=== PATIENT | male | born 1935 ===

== ENCOUNTER 2022-07-11 10:56 | Observation (INO) | payer MEDICARE ==
--- NOTE | 2022-07-11 11:20 | Emergency Department Report ---
ED Neuro Deficit HPI - General Chief Complaint: Neuro Symptoms/Deficit Stated Complaint: STROKE Time Seen by Provider: 07/11/22 11:15 Source: family, EMS Mode of arrival: Stretcher Limitations: Physical Limitation - History of Present Illness Initial Comments: As per daughter 87-year-old male with a past medical history of a CVA affecting left eye vision many years ago and CVA 1 month ago treated at [facility] presents to the hospital with complaints of strokelike symptoms. Daughter states patient ambulated normally to the bathroom. She was assisting patient and around 10 AM he began to have difficulty standing and became less responsive. She reports garbled speech and left-sided weakness. Patient had a CVA 1 month ago which he presented with ab normal speech and was noted to have some left-sided weakness. Since then patient has deteriorated from using a cane to a walker and he has undergone several rounds of physical and occupational therapy since discharge from the hospital. Patient was placed on Lipitor and Plavix and has been compliant. He currently is with his daughter since recent stroke. Patient denies any pain. EMS reports left-sided weakness upon their arrival but symptoms are improving - Related Data Allergies/Adverse Reactions: Allergies Allergy/AdvReac Type Severity Reaction Status Date / Time No Known Allergies Allergy Unverified 07/11/22 11:02 ED Review of Systems ROS: Stated complaint: STROKE Other details as noted in HPI Comment: All other systems reviewed and negative ED Neuro Physical Exam - General Limitations: Physical Limitation Suspected Stroke: Yes - NIHSS Assessment Interval: Baseline 1a. Level of Consciousness: alert/keenly responsive 1b. LOC Questions: answers both correctly 1c. LOC Commands: performs tasks correctly 2. Best Gaze: normal 3. Visual: no visual loss 4. Facial Palsy: minor paralysis 5b. Motor Arm Right: no drift 5a. Motor Arm Left: no drift 6a. Motor Leg Left: drift 6b. Motor Leg Right: no drift 7. Limb Ataxia: absent 8. Sensory: normal 9. Best Language: no aphasia 10. Dysarthria: mild/moderate dysarthria 11. Extinction/Inattention: no abnormality Total Score: 3 Stroke Severity: Minor Stroke - Other Other exam information: General: No acute distress Head: Atraumatic Eyes: normal appearance ENT: Moist mucous membranes Neck: Normal appearance, no midline tenderness Chest: Clear to auscultation bilaterally CV: Regular rate and rhythm Abdomen: Soft, normal bowel sounds, nontender, nondistended, no rebound or guarding Back: Normal inspection Extremity: Normal inspection, full range of motion Neuro: Alert O x 3, no facial asymmetry, speech clear, no gross motor sensory deficit Psych: Appropriate behavior Skin: No rash ED Course Vital Signs 07/11/22 07/11/22 07/11/22 10:56 11:45 11:48 Temperature 98.0 F 97.8 F Pulse Rate 42 L 73 67 Respiratory 16 13 29 H Rate Blood Pressure Blood Pressure 155/67 151/70 [Right] O2 Sat by Pulse 98 98 Oximetry 07/11/22 07/11/22 07/11/22 11:50 12:01 12:15 Temperature Pulse Rate 61 58 L Respiratory 26 H 27 H 26 H Rate Blood Pressure 151/70 164/80 Blood Pressure [Right] O2 Sat by Pulse 98 98 96 Oximetry 07/11/22 07/11/22 07/11/22 12:31 12:45 13:01 Temperature Pulse Rate 66 59 L 58 L Respiratory 30 H 25 H 24 Rate Blood Pressure 164/80 159/71 159/71 Blood Pressure [Right] O2 Sat by Pulse 99 99 99 Oximetry 07/11/22 13:15 Temperature Pulse Rate 58 L Respiratory 26 H Rate Blood Pressure 162/75 Blood Pressure [Right] O2 Sat by Pulse 100 Oximetry - Consultations Consultation #1: 07/11/22 11:38 Case d/w Dr Em neurologist. Pt's daughter at the bedside - Lab Data Result diagrams: 07/11/22 12:35 07/11/22 12:35 Lab Results 07/11/22 07/11/22 07/11/22 Range/Units 12:35 12:35 12:35 WBC 9.5 (4.5-11.0) K/mm3 RBC 2.95 L (3.65-5.03) M/mm3 Hgb 8.0 L (11.8-15.2) gm/dl Hct 24.6 L (35.5-45.6) % MCV 83 L (84-94) fl MCH 27 L (28-32) pg MCHC 32 (32-34) % RDW 15.6 H (13.2-15.2) % Plt Count 300 (140-440) K/mm3 Lymph % (Auto) 7.5 L (13.4-35.0) % [place] % (Auto) 6.7 (0.0-7.3) % Eos % (Auto) 0.4 (0.0-4.3) % Baso % (Auto) 0.1 (0.0-1.8) % Lymph # (Auto) 0.7 L (1.2-5.4) K/mm3 [place] # (Auto) 0.6 (0.0-0.8) K/mm3 Eos # (Auto) 0.0 (0.0-0.4) K/mm3 Baso # (Auto) 0.0 (0.0-0.1) K/mm3 Seg Neutrophils % 85.3 H (40.0-70.0) % Seg Neutrophils # 8.1 H (1.8-7.7) K/mm3 PT 15.1 H (12.2-14.9) Sec. INR 1.07 (0.87-1.13) APTT 30.1 (24.2-36.6) Sec. Thrombin Time 18.5 (15.1-19.6) Sec. Sodium 142 (137-145) mmol/L Potassium 4.2 (3.6-5.0) mmol/L Chloride 108.4 H (98-107) mmol/L Carbon Dioxide 25 (22-30) mmol/L Anion Gap 13 mmol/L BUN 19 (9-20) mg/dL Creatinine 1.0 (0.8-1.3) mg/dL Estimated GFR > 60 ml/min BUN/Creatinine Ratio 19 % Glucose 94 (75-100) mg/dL Calcium 8.3 L (8.4-10.2) mg/dL - EKG Data -: EKG Interpreted by Ut EKG shows normal: sinus rhythm, ST-T waves (No STEMI) - Radiology Data Radiology results: report reviewed CT HEAD WITHOUT CONTRAST INDICATION / CLINICAL INFORMATION: Left-sided weakness, dysarthria with EMS. TECHNIQUE: All CT scans at this location are performed using CT dose reduction for ALARA by means of automated exposure control. COMPARISON: None available. FINDINGS: HEMORRHAGE: No evidence of intracranial hemorrhage or extra-axial fluid collection. EXTRA-AXIAL SPACES: Cortical sulci and sylvian fissures are enlarged reflecting a degree of parenchymal volume loss which is within normal limits for the patient's age of 87 years. Basilar cisterns have an unremarkable appearance. VENTRICULAR SYSTEM: The third and lateral ventricles are enlarged reflecting presence of age related parenchymal volume loss. CEREBRAL PARENCHYMA: Periventricular and deep white matter lucency is observed. This is probably secondary to microvascular ischemic change. Well-circumscribed foci of decreased brain parenchymal attenuation are identified in the gangliocapsular regions bilaterally. In addition well- circumscribed lucencies are present in the right and left thalami. A similar finding is present in the mid jacob. These findings likely reflect simple remote small deep infarctions. Additionally noted is encephalomalacia along the medial aspect of the right occipital lobe secondary to remote right posterior cerebral artery infarction. If acute infarction is of clinical concern consider MRI brain with diffusion-weighted imaging for further evaluation. MIDLINE SHIFT OR HERNIATION: There is no mass effect. CEREBELLUM / BRAINSTEM: Brainstem has an unremarkable appearance. Age related cerebellar atrophy is noted. MIDLINE STRUCTURES:Pituitary gland has an unremarkable appearance. No abnormalities are seen in the pineal region. INTRACRANIAL VESSELS:Calcified atherosclerotic plaque is present along the course of the cavernous segments of both internal carotid arteries. Similar findings are seen at the dis jesús vertebral arteries. CRANIOCERVICAL JUNCTION:No significant abnormality. ORBITS: visualized portions of the orbits have an unremarkable appearance. SOFT TISSUES of HEAD: No significant abnormality. CALVARIUM: Evaluation of bone windows reveals no abnormalities. PARANASAL SINUSES / MASTOID AIR CELLS: Paranasal sinuses are free from inflammatory mucosal disease. Mastoid air cells are normally pneumatized. IMPRESSION: 1. 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 2. Multifocal bilateral thalamic and basal ganglia small deep infarctions. These are likely remote. 3. If acute infarction is of clinical concern consider MRI brain with diffusion weighted imaging for further evaluation. CODE STROKE: Time of Communication (HEAD OF BIOLOGY/CDT): 1035 Central standard time Licensed Practitioner Receiving Report: Dr. Abbott of the [facility] emergency department. CTA neck without and with intravenous contrast material CLINICAL HISTORY: Left-sided weakness, dysarthria TECHNIQUE: Following acquisition of a timing bolus 0.625 mm thick contiguous axial scans were obtained from aortic arch to the skull base during rapid bolus intravenous contrast infusion. In addition to evaluation of axial source images multiplanar reconstructions were produced and reviewed for this report. 3 plane MIP reconstructions were produced and reviewed. Contrast dose report: Omnipaque 350: 100 ml, administered intravenously All CT examinations performed at this facility utilize modulated dose re duction, iterative reconstruction or weight-based dosing, as appropriate, to obtain a radiation dos e which is as low as can reasonably be achieved. FINDINGS: Thoracic aorta:No abnormalities are identified along the course of the thoracic aorta..The origins of the great vessels have an unremarkable appearance. Brachiocephalic artery, left common carotid artery origin and left subclavian artery all have an unremarkable appearance. Right carotid artery: Combination of calcified and soft plaque is present at the right carotid bifurcation extending into the proximal R ICA. Maximum degree of stenosis is on the order of less than 25%. Right common carotid artery and mid and distal cervical segments of the right internal carotid artery have an unremarkable appearance. Left carotid artery: A combination of calcified and soft plaque is observed at the left carotid bulb extending into the proximal LICA. There is no associated stenosis. Right common carotid artery and mid and distal segments of the LICA have an unremarkable appearance. Posterior circulation: Mild dominance of the left vertebral artery is noted. Calcified atherosclerotic plaque is seen at the origin of both vertebral arteries with no associated stenosis. The V1 and V2 segments of the vertebral arteries have a normal appearance. The degree of stenosis, if any, is determined utilizing NASCET like criteria. In this case there is no indication of hemodynamically significant stenosis at the carotid bifurcations or elsewhere. Evaluation of the nonvascular soft tissue structures reveal no abnormality. There is no indication of cervical lymphadenopathy. No abnormalities are seen along the course of the airway. Visualized portions of the parotid glands and the submandibular salivary glands have a normal appearance. Thyroid gland has a normal appearance. A poorly marginated 14 x 13 x 10 mm groundglass lesion is present in the right upper lobe. Recommend baseline chest CT for complete evaluation of the lungs. Evaluation of the cervical spine revealed no significant abnormalities. IMPRESSION: 1. No indication of hemodynamically significant stenosis at the carotid bifurcations or elsewhere. 2. Suggest baseline chest CT at this time. 3. Single incidental pulmonary nodule(s) in the right upper lobe measuring 10 x 14 x 13 mm with subsolid (ground glass) characteristics. Recommendation according to Fleischner Society 2017 Guidelines: CT at 6-12 months to confirm persistence, then CT every 2 years until 5 years. CTA head with intravenous contrast CLINICAL HISTORY: Left-sided weakness, dysarthria TECHNIQUE: 0.625 mm thick contiguous axial scans were obtained from the skull base to the skull vertex during rapid bolus administration of intravenous contrast material. Multiplanar reconstructions were produced in the coronal and sagittal planes. In addition 3 plane MIP instructions were produced and reviewed for this report. The axial source images and reconstructed images were reviewed for this report. CONTRAST DOSE REPORT: Omnipaque 350: 100 ml administered intravenously. All CT scans at this location are performed using CT dose reduction for ALARA by means of automated exposure control. FINDINGS: Internal carotid arteries: Calcified atherosclerotic plaque is seen along the course of the cavernous segments of both internal carotid arteries extending up into the communicating segments bilaterally. There is no associated hemodynamically significant stenosis. Middle cerebral arteries:Normal and symmetrical M1 segments of the middle cerebral arteries are demonstrated. No abnormalities are seen on evaluation of the insular or opercular branches. Anterior cerebral arteries:Bilaterally symmetrical A1 segments are demonstrated. No abnormalities are seen along the course of the A2 segments or their visualized pericallosal branches. A small anterior communicating artery is identified. Vertebral arteries:Bilaterally symmetrical vertebral arteries are demonstrated. Both vertebral arteries contribute to the basilar artery origin. Basilar artery:Basilar artery has an unremarkable appearance. Posterior cerebral arteries:Bilaterally symmetrical posterior cerebral arteries are identified. A left-sided posterior communicating artery is identified. [place]:Not intact. see above. Dural sinuses: Dural venous sinuses are well demonstrated on this exam. There is no evidence of dural sinus thrombosis. IMPRESSION: 1. No indication of hemodynamically significant intracranial stenosis or large vessel occlusion. - Medical Decision Making 87-year-old male with sudden onset of strokelike symptoms at approximately 10 AM. It does appear the patient has some residual deficits status post recent CVA with increased debility requiring walker use. Patient recently completed occupational physical therapy. Symptoms worsen suddenly at 10 AM as witnessed by his daughter at the bedside. Patient not a tPA candidate secondary to recent stroke [address] head, CT angio head and neck are reviewed. Neurologist consult appreciated. Please refer to note for further work-up recommendations - Thrombolytic Inclusion/Exclusion Thrombolytic Contraindications: Stroke in Past 3 Months Critical Care Time: Yes Critical care time in (mins) excluding proc time.: 35 Critical care attestation.: If time is entered above; I have spent that time in minutes in the direct care of this critically ill patient, excluding procedure time. Critical Care Time: 35 Minutes of critical care time excluding procedures were used in the care of the patient. I came immediately to the bedside upon patient's arrival. I obtained history from EMS at the bedside. I discussed treatment plan with the nursing team members. I reviewed electronic record. I spoke with family to obtain medical history. Patient required multiple interventions and reassessments. Spoke with hospitalist and consultants for collaborative care ED Disposition Clinical Impression: Stroke syndrome, Anemia, History of CVA (cerebrovascular accident) Disposition: ADMITTED INPATIENT Is pt being admited?: Yes Does the pt Need Aspirin: Yes Condition: Stable Time of Disposition: 14:08 (Dr Eduardo/hospitalist)
--- NOTE | 2022-07-11 11:41 | Cat Scan Report ---
CT HEAD WITHOUT CONTRAST INDICATION / CLINICAL INFORMATION: Left-sided weakness, dysarthria with EMS. TECHNIQUE: All CT scans at this location are performed using CT dose reduction for ALARA by means of automated e xposure control. COMPARISON: None available. FINDINGS: HEMORRHAGE: No evidence of intracranial hemorrhage or extra-axial fluid collection. EXTRA-AXIAL SPACES: Cortical sulci and sylvian fissures are enlarged reflecting a degree of parenchym al volume loss which is within normal limits for the patient's age of 87 years. Basilar cisterns have an unremarkable appearance. VENTRICULAR SYSTEM: The third and lateral ventricles are enlarged reflecting presence of age related parenchymal volume loss. CEREBRAL PARENCHYMA: Periventricular and deep white matter lucency is observed. This is probably seco ndary to microvascular ischemic change. Well-circumscribed foci of decreased brain parenchymal attenu ation are identified in the gangliocapsular regions bilaterally. In addition well-circumscribed lucen cies are present in the right and left thalami. A similar finding is present in the mid jacob. These f indings likely reflect simple remote small deep infarctions. Additionally noted is encephalomalacia a long the medial aspect of the right occipital lobe secondary to remote right posterior cerebral arter y infarction. If acute infarction is of clinical concern consider MRI brain with diffusion-weighted i maging for further evaluation. MIDLINE SHIFT OR HERNIATION: There is no mass effect. CEREBELLUM / BRAINSTEM: Brainstem has an unremarkable appearance. Age related cerebellar atrophy is n oted. MIDLINE STRUCTURES:Pituitary gland has an unremarkable appearance. No abnormalities are seen in the p ineal region. INTRACRANIAL VESSELS:Calcified atherosclerotic plaque is present along the course of the cavernous se gments of both internal carotid arteries. Similar findings are seen at the distal vertebral arteries. CRANIOCERVICAL JUNCTION:No significant abnormality. ORBITS: visualized portions of the orbits have an unremarkable appearance. SOFT TISSUES of HEAD: No significant abnormality. CALVARIUM: Evaluation of bone windows reveals no abnormalities. PARANASAL SINUSES / MASTOID AIR CELLS: Paranasal sinuses are free from inflammatory mucosal disease. Mastoid air cells are normally pneumatized. IMPRESSION: 1. Remote right posterior cerebral artery infarction involving the medial aspect of the right occipit al lobe. 2. Multifocal bilateral thalamic and basal ganglia small deep infarctions. These are likely remote. 3. If acute infarction is of clinical concern consider MRI brain with diffusion weighted imaging for further evaluation. CODE STROKE: Time of Communication (UNIT CLERK/CDT): 1035 Central standard time Licensed Practitioner Receiving Report: Dr. Abbott of the [facility] emergency de partment. Signer Name: Ej Pineda MD Signed: 07/11/2022 11:37 AM Workstation Name: [id number]
--- NOTE | 2022-07-11 12:03 | Cat Scan Report ---
CTA neck without and with intravenous contrast material CLINICAL HISTORY: Left-sided weakness, dysarthria TECHNIQUE: Following acquisition of a timing bolus 0.625 mm thick contiguous axial scans were obtained from aort ic arch to the skull base during rapid bolus intravenous contrast infusion. In addition to evaluation of axial source images multiplanar reconstructions were produced and reviewed for this report. 3 esau ne MIP reconstructions were produced and reviewed. Contrast dose report: Omnipaque 350: 100 ml, administered intravenously All CT examinations performed at this facility utilize modulated dose reduction, iterative reconstruc tion or weight-based dosing, as appropriate, to obtain a radiation dose which is as low as can reason ably be achieved. FINDINGS: Thoracic aorta:No abnormalities are identified along the course of the thoracic aorta..The origins of the great vessels have an unremarkable appearance. Brachiocephalic artery, left common carotid arter y origin and left subclavian artery all have an unremarkable appearance. Right carotid artery: Combination of calcified and soft plaque is present at the right carotid bifurc ation extending into the proximal R ICA. Maximum degree of stenosis is on the order of less than 25%. Right common carotid artery and mid and distal cervical segments of the right internal carotid arter y have an unremarkable appearance. Left carotid artery: A combination of calcified and soft plaque is observed at the left carotid bulb extending into the proximal LICA. There is no associated stenosis. Right common carotid artery and mi d and distal segments of the LICA have an unremarkable appearance. Posterior circulation: Mild dominance of the left vertebral artery is noted. Calcified atheroscleroti c plaque is seen at the origin of both vertebral arteries with no associated stenosis. The V1 and V2 segments of the vertebral arteries have a normal appearance. The degree of stenosis, if any, is determined utilizing NASCET like criteria. In this case there is no indication of hemodynamically significant stenosis at the carotid bifurcations or elsewhere. Evaluation of the nonvascular soft tissue structures reveal no abnormality. There is no indication of cervical lymphadenopathy. No abnormalities are seen along the course of the airway. Visualized porti ons of the parotid glands and the submandibular salivary glands have a normal appearance. Thyroid gla nd has a normal appearance. A poorly marginated 14 x 13 x 10 mm groundglass lesion is present in the right upper lobe. Recommend baseline chest CT for complete evaluation of the lungs. Evaluation of the cervical spine revealed no significant abnormalities. IMPRESSION: 1. No indication of hemodynamically significant stenosis at the carotid bifurcations or elsewhere. 2. Suggest baseline chest CT at this time. 3. Single incidental pulmonary nodule(s) in the right upper lobe measuring 10 x 14 x 13 mm with subso lid (ground glass) characteristics. Recommendation according to Fleischner Society 2017 Guidelines: C T at 6-12 months to confirm persistence, then CT every 2 years until 5 years. CTA head with intravenous contrast CLINICAL HISTORY: Left-sided weakness, dysarthria TECHNIQUE: 0.625 mm thick contiguous axial scans were obtained from the skull base to the skull vertex during r apid bolus administration of intravenous contrast material. Multiplanar reconstructions were produced in the coronal and sagittal planes. In addition 3 plane MIP instructions were produced and reviewed for this report. The axial source images and reconstructed images were reviewed for this report. CONTRAST DOSE REPORT: Omnipaque 350: 100 ml administered intravenously. All CT scans at this location are performed using CT dose reduction for ALARA by means of automated e xposure control. FINDINGS: Internal carotid arteries: Calcified atherosclerotic plaque is seen along the course of the cavernous segments of both internal carotid arteries extending up into the communicating segments bilaterally. There is no associated hemodynamically significant stenosis. Middle cerebral arteries:Normal and symmetrical M1 segments of the middle cerebral arteries are demon strated. No abnormalities are seen on evaluation of the insular or opercular branches. Anterior cerebral arteries:Bilaterally symmetrical A1 segments are demonstrated. No abnormalities are seen along the course of the A2 segments or their visualized pericallosal branches. A small anterior communicating artery is identified. Vertebral arteries:Bilaterally symmetrical vertebral arteries are demonstrated. Both vertebral arteri es contribute to the basilar artery origin. Basilar artery:Basilar artery has an unremarkable appearance. Posterior cerebral arteries:Bilaterally symmetrical posterior cerebral arteries are identified. A le ft-sided posterior communicating artery is identified. [place]:Not intact. see above. Dural sinuses: Dural venous sinuses are well demonstrated on this exam. There is no evidence of dural sinus thrombosis. IMPRESSION: 1. No indication of hemodynamically significant intracranial stenosis or large vessel occlusion. Signer Name: Ej Pineda MD Signed: 07/11/2022 11:59 AM Workstation Name: [id number]
--- NOTE | 2022-07-11 12:29 | Consultation ---
History of Present Illness History of present illness: [facility] Consult Note # Demographics Consult Type: Acute Stroke Level 1 (0-4.5 hrs) Patient Location: Emergency Room First Name: Jimmie Last Name: Tony Date of : 1935 Age: 87 Gender: Male Facility: [facility] Time of Initial Page (): 07/11/2022, 10:58 Time of Return Call ( Time): 07/11/2022, 10:58 # HPI Chief Complaint: altered mental state weakness (focal) History: 87M with recent stroke and distant stroke presents with left-sided weakness. Found by daughter on the toilet. EMS called; noted to have slurred speech and left sided weakness. Had stroke 1 month ago. Fingerstick 91. LKWT 1000. Daughter took him to the bathroom to get him cleaned up, stopped moving left side normally and was not following commands. On Plavix and Lipitor. # Scores Time of exam and NIHSS (): 07/11/2022, 10:58 Level of Consciousness 1a: [0] = Alert; keenly responsive LOC Questions 1b: [0] = Answers both questions correctly LOC Commands 1c: [0] = Performs both tasks correctly Best Gaze 2: [0] = Normal Visual 3: [0] = No visual loss Facial Palsy 4: [2] = Partial paralysis Motor Arm Left 5a: [0] = No drift Motor Arm Right 5b: [0] = No drift Motor Leg Left 6a: [1] = Drift Motor Leg Right 6b: [0] = No drift Limb Ataxia 7: [0] = Absent Sensory 8: [0] = Normal Best Language 9: [0] = No aphasia Dysarthria 10: [1] = [id number] dysarthria Extinction and Inattention 11: [1] = Visual, tactile, auditory, spatial, or personal inattention NIHSS Total: 5 # Data Time Head CT personally read by me ( Time): 07/11/2022, 11:[address]: no bleed preliminarily reviewed by me, please refer to radiology read for official reading chronic R occipital stroke CTA Head: preliminarily reviewed by me, please refer to radiology read for official reading right P1 occlusion CTA Neck: patent vessels preliminarily reviewed by me, please refer to radiology read for official reading # Assessment Impression: Ischemic Stroke (Acute) # Plan Thrombolytic/Intervention: NOT IV Thrombolysis or IA Intervention candidate Thrombolytic Exclusion (< 3 hour window): stroke within 3 months Intraarterial Exclusion: non-disabling minor new symptoms Target Blood Pressure: SBP < 220 DBP < 105 Labs: hemoglobin A1c lipid panel Imaging: (urgency: routine): MRI Brain without contrast Diagnostic Test: echo without bubble study Therapy/Evaluation: PT/OT evaluation Medication: ASA 325 Atorvastatin 80 DVT Prophylaxis: SCD chemical DVT prophylaxis Other: LDL < 70 If patient has any neurological deterioration please call me back immediately permissive hypertension telemetry monitoring I have discussed my recommendations with the referring provider Disposition: admit # Logistics Telemedicine: Interactive 2 way audio and visual telecommunication technology was utilized during this visit Electronically signed at 07/11/2022 12:29 (Eastern Time) by Manav Epps MD Medications and Allergies Allergies Allergy/AdvReac Type Severity Reaction Status Date / Time No Known Allergies Allergy Unverified 07/11/22 11:02 Physical Examination - Vital Signs Vital Signs: Vital Signs Temp Pulse Resp BP Pulse Ox 98.0 F 42 L 16 155/67 98 07/11/22 10:56 07/11/22 10:56 07/11/22 10:56 07/11/22 10:56 07/11/22 10:56
[2022-07-11 12:50] LABS: Basophils % (Auto) 0.1 % (0.0-1.8); Eosinophils % (Auto) 0.4 % (0.0-4.3); Hematocrit 24.6 % (35.5-45.6); Lymphocytes # (Auto) 0.7 K/mm3 (1.2-5.4); Lymphocytes % (Auto) 7.5 % (13.4-35.0); Mean Corpuscular HGB Conc 32 % (32-34); Mean Corpuscular Volume 83 fl (84-94); Monocytes # (Auto) 0.6 K/mm3 (0.0-0.8); Monocytes % (Auto) 6.7 % (0.0-7.3); Platelet Count 300 K/mm3 (140-440); Red Blood Count 2.95 M/mm3 (3.65-5.03); Red Cell Distribution Width 15.6 % (13.2-15.2)
[2022-07-11 13:01] LABS: INR 1.07 (0.87-1.13)
[2022-07-11 13:02] LABS: BUN/Creatinine Ratio 19; Blood Urea Nitrogen 19 mg/dL (9-20); Calcium 8.3 mg/dL (8.4-10.2); Hemolysis Index 0; Partial Thromboplastin Time 30.1 Sec. (24.2-36.6); Thrombin Time 18.5 Sec. (15.1-19.6)
[2022-07-11] MEDS ORDERED: ONDANSETRON 4 MG/2 ML INJ IV PRN ×2 (14:09→14:57)
[2022-07-11] MEDS ORDERED: ASPIRIN 325 MG TAB PO ONE (14:09)
[2022-07-11] MEDS ORDERED: ACETAMINOPHEN 325 MG TAB PO PRN ×2 (14:09→14:57)
[2022-07-11] MEDS ORDERED: MORPHINE 2 MG/1 ML INJ IV PRN (14:10)
[2022-07-11] MEDS ORDERED: METOCLOPRAMIDE 10 MG/2 ML INJ IV PRN (14:57)
[2022-07-11] MEDS ORDERED: SODIUM CHLORIDE 0.9% 1000 ML 1,000 ML IV SCH (15:00)
[2022-07-11] MEDS: FAMOTIDINE 20 MG/2 ML INJ IV SCH ×2 (16:38→22:48)
[2022-07-12 04:39] VITALS: BP 130/57
--- NOTE | 2022-07-12 06:26 | History and Physical Report ---
History of Present Illness Date of examination: 07/11/22 Date of admission: 07/11/22 14:09 Chief complaint: Left-sided weakness since a.m. History of present illness: 87-year-old male with past medical history of cerebrovascular accident 1 month ago. Was admitted to [facility] 1 month ago for left-sided weakness. Patient was treated and discharged on Plavix aspirin and Lipitor. Patient is able to walk with the help of her walker. This a.m. daughter noticed weakness on the left side and dysarthria because of which EMS was called. As per EMS patient had left-sided weakness. During my exam his left-sided weakness is improved back to normal and there was no dysarthria. Patient being admitted for TIA symptoms. Medications and Allergies Allergies Allergy/AdvReac Type Severity Reaction Status Date / Time No Known Allergies Allergy Unverified 07/11/22 11:02 Home Medications Medication Instructions Recorded Confirmed Last Taken Type Atorvastatin [Lipitor Tab] 80 mg PO QHS 07/12/22 07/12/22 Unknown History Clopidogrel [Plavix] 75 mg PO QDAY 07/12/22 07/12/22 Unknown History Latanoprost 0.005% [Xalatan 0.005%] 1 drop OU QHS 07/12/22 07/12/22 Unknown History Active Meds: Active Medications Acetaminophen (Acetaminophen 325 Mg Tab) 650 mg PO Q4H PRN PRN Reason: Pain MILD(1-3)/Fever >100.5/MCKNIGHT Acetaminophen (Acetaminophen 325 Mg Tab) 650 mg PO Q4H PRN PRN Reason: Pain MILD(1-3)/Fever >100.5/MCKNIGHT Famotidine (Famotidine 20 Mg/2 Ml Inj) 20 mg IV BID [facility] Last Admin: 07/11/22 22:48 Dose: 20 mg Sodium Chloride (Nacl 0.9% 1000 Ml) 1,000 mls @ 75 mls/hr IV DIRECT [facility] Last Admin: 07/11/22 22:47 Dose: 75 mls/hr Metoclopramide HCl (Metoclopramide 10 Mg/2 Ml Inj) 10 mg IV Q6H PRN PRN Reason: Nausea And Vomiting Morphine Sulfate (Morphine 2 Mg/1 Ml Inj) 2 mg IV Q4H PRN PRN Reason: Pain, Moderate (4-6) Ondansetron HCl (Ondansetron 4 Mg/2 Ml Inj) 4 mg IV Q8H PRN PRN Reason: Nausea And Vomiting Ondansetron HCl (Ondansetron 4 Mg/2 Ml Inj) 4 mg IV Q8H PRN PRN Reason: Nausea And Vomiting Sodium Chloride (Sodium Chloride 0.9% 10 Ml Flush Syringe) 10 ml IV BID [facility] Last Admin: 07/11/22 22:48 Dose: 10 ml Sodium Chloride (Sodium Chloride 0.9% 10 Ml Flush Syringe) 10 ml IV PRN PRN PRN Reason: LINE FLUSH Sodium Chloride (Sodium Chloride 0.9% 10 Ml Flush Syringe) 10 ml IV BID [facility] Last Admin: 07/11/22 22:33 Dose: Not Given Sodium Chloride (Sodium Chloride 0.9% 10 Ml Flush Syringe) 10 ml IV PRN PRN PRN Reason: LINE FLUSH Exam - Constitutional Vitals: Temp Pulse Resp BP Pulse Ox 99.0 F 78 22 130/57 97 07/12/22 04:30 07/12/22 04:30 07/12/22 04:30 07/12/22 04:30 07/12/22 04:30 General appearance: Present: no acute distress, well-nourished - EENT Eyes: Present: PERRL ENT: hearing intact, clear oral mucosa - Neck Neck: Present: supple, normal ROM - Respiratory Respiratory effort: normal Respiratory: bilateral: CTA - Cardiovascular Heart rate: 75 Rhythm: regular Heart Sounds: Present: S1 & S2. Absent: rub, click - Extremities Extremities: no ischemia, pulses intact, pulses symmetrical, No edema Peripheral Pulses: within normal limits - Abdominal General gastrointestinal: Present: soft, non-tender, non-distended, normal bowel sounds Male genitourinary: Present: normal - Rectal Rectal Exam: deferred - Integumentary Integumentary: Present: clear, warm, dry - Musculoskeletal Musculoskeletal: gait normal, strength equal bilaterally - Psychiatric Psychiatric: appropriate mood/affect, intact judgment & insight - Neurologic Neurologic: CNII-XII intact, moves all extremities (Pulmonary 5/5 power in the left upper and left lower extremity. Right side is normal.) Results - Labs CBC & Chem 7: 07/11/22 12:35 07/11/22 12:35 Labs: Laboratory Last Values WBC 9.5 K/mm3 (4.5-11.0) 07/11/22 12:35 RBC 2.95 M/mm3 (3.65-5.03) L 07/11/22 12:35 Hgb 8.0 gm/dl (11.8-15.2) L 07/11/22 12:35 Hct 24.6 % (35.5-45.6) L 07/11/22 12:35 MCV 83 fl (84-94) L 07/11/22 12:35 MCH 27 pg (28-32) L 07/11/22 12:35 MCHC 32 % (32-34) 07/11/22 12:35 RDW 15.6 % (13.2-15.2) H 07/11/22 12:35 Plt Count 300 K/mm3 (140-440) 07/11/22 12:35 Lymph % (Auto) 7.5 % (13.4-35.0) L 07/11/22 12:35 [place] % (Auto) 6.7 % (0.0-7.3) 07/11/22 12:35 Eos % (Auto) 0.4 % (0.0-4.3) 07/11/22 12:35 Baso % (Auto) 0.1 % (0.0-1.8) 07/11/22 12:35 Lymph # (Auto) 0.7 K/mm3 (1.2-5.4) L 07/11/22 12:35 [place] # (Auto) 0.6 K/mm3 (0.0-0.8) 07/11/22 12:35 Eos # (Auto) 0.0 K/mm3 (0.0-0.4) 07/11/22 12:35 Baso # (Auto) 0.0 K/mm3 (0.0-0.1) 07/11/22 12:35 Seg Neutrophils % 85.3 % (40.0-70.0) H 07/11/22 12:35 Seg Neutrophils # 8.1 K/mm3 (1.8-7.7) H 07/11/22 12:35 PT 15.1 Sec. (12.2-14.9) H 07/11/22 12:35 INR 1.07 (0.87-1.13) 07/11/22 12:35 APTT 30.1 Sec. (24.2-36.6) 07/11/22 12:35 Thrombin Time 18.5 Sec. (15.1-19.6) 07/11/22 12:35 Sodium 142 mmol/L (137-145) 07/11/22 12:35 Potassium 4.2 mmol/L (3.6-5.0) 07/11/22 12:35 Chloride 108.4 mmol/L (98-107) H 07/11/22 12:35 Carbon Dioxide 25 mmol/L (22-30) 07/11/22 12:35 Anion Gap 13 mmol/L 07/11/22 12:35 BUN 19 mg/dL (9-20) 07/11/22 12:35 Creatinine 1.0 mg/dL (0.8-1.3) 07/11/22 12:35 Estimated GFR > 60 ml/min 07/11/22 12:35 BUN/Creatinine Ratio 19 % 07/11/22 12:35 Glucose 94 mg/dL (75-100) 07/11/22 12:35 Calcium 8.3 mg/dL (8.4-10.2) L 07/11/22 12:35 Short CBC 07/11/22 Range/Units 12:35 WBC 9.5 (4.5-11.0) K/mm3 Hgb 8.0 L (11.8-15.2) gm/dl Hct 24.6 L (35.5-45.6) % Plt Count 300 (140-440) K/mm3 BMP 07/11/22 12:35 Sodium 142 Potassium 4.2 Chloride 108.4 H Carbon Dioxide 25 BUN 19 Creatinine 1.0 Glucose 94 Calcium 8.3 L - Imaging and Cardiology Imaging and Cardiology: Head CT Remote right posterior cerebral artery infarction involving the medial aspect of the right occipital lobe Multifocal bilateral thalamic and basal ganglia small deep infarctions this is likely remote If acute in from infarction is of clinical concern consider MRI brain with diffusion-weighted imaging for further evaluation. Head CTA And neck CTA No indication for hemodynamically significant intracranial stenosis or large vessel occlusion. [place]/IV: Voiding Method Condom Catheter Assessment and Plan Advance Directives: Yes (Full code) VTE prophylaxis?: Chemical Plan of care discussed with patient/family: Yes - Patient Problems (1) TIA (transient ischemic attack) Current Visit: Yes Status: Acute Plan to address problem: Patient being admitted for observation Left-sided weakness is resolved during my exam Patient had a full work-up at [facility] but is not available No MRI with this point Possible discharge tomorrow Patient on aspirin and Plavix (2) Hyperlipidemia Current Visit: Yes Status: Chronic Qualifiers: Hyperlipidemia type: mixed hyperlipidemia Qualified Code(s): E78.2 - Mixed hyperlipidemia Plan to address problem: Patient on high intensity statins Continue the same (3) Anemia Current Visit: Yes Status: Chronic Qualifiers: Anemia type: unspecified type Qualified Code(s): D64.9 - Anemia, unspecified Plan to address problem: Anemia work-up Ferrous sulfate at discharge (4) Old cerebrovascular accident without late effect Current Visit: Yes Status: Chronic Plan to address problem: Patient uses walker Strength is normal and both upper and lower extremities Reevaluate (5) Hypocalcemia Current Visit: Yes Status: Chronic Plan to address problem: Mild And vitamin D and calcium= Caltrate daily plus twice daily (6) DVT prophylaxis Current Visit: Yes Status: Acute Plan to address problem: On heparin and GI prophylaxis (7) Advance care planning Current Visit: Yes Status: Acute Plan to address problem: Disease education conducted, care plan discussed, diagnosis discussed and prognosis discussed. Patient is full code. Patient acknowledged understanding with care plan. +30 minutes.
[2022-07-12 08:25] LABS: Basophils % (Auto) 0.2 % (0.0-1.8); Eosinophils # (Auto) 0.1 K/mm3 (0.0-0.4); Eosinophils % (Auto) 0.7 % (0.0-4.3); Hematocrit 23.5 % (35.5-45.6); Hemoglobin 7.6 gm/dl (11.8-15.2); Lymphocytes # (Auto) 0.9 K/mm3 (1.2-5.4); Mean Corpuscular HGB Conc 32 % (32-34); Mean Corpuscular Volume 82 fl (84-94); Monocytes # (Auto) 0.8 K/mm3 (0.0-0.8); Monocytes % (Auto) 8.4 % (0.0-7.3); Platelet Count 292 K/mm3 (140-440); Red Blood Count 2.88 M/mm3 (3.65-5.03); Red Cell Distribution Width 15.2 % (13.2-15.2)
[2022-07-12 09:29] LABS: Alanine Aminotransferase 36 units/L (7-56); Albumin 2.6 g/dL (3.9-5); BUN/Creatinine Ratio 17; Blood Urea Nitrogen 17 mg/dL (9-20); Calcium 8.2 mg/dL (8.4-10.2); Hemolysis Index 0; Iron 14 ug/dL (49-181); Total Iron Binding Capacity 123 mcg/dL (250-450)
--- NOTE | 2022-07-12 09:36 | Electrocardiograph Report ---
[facility] Test Date: 2022-07-11 Test Time: 11:36:26 Pat Name: STEVO HINOJOSA Department: Room: A467 Gender: M [employer]: [place] : 1935 Requested By: MYNOR HOLMAN Order Number: [id number] Reading MD: Mahad Allen Measurements Intervals [place] Rate: 71 P: 44 WA: 158 QRS: 56 QRSD: 83 T: 43 QT: 436 QTc: 473 Interpretive Statements Sinus rhythm No previous ECG available for comparison Electronically Signed On 07-12-2022 9:36:47 EDT by Mahad Allen
[2022-07-12] MEDS ORDERED: CLOPIDOGREL 75 MG TAB PO SCH (10:00)
[2022-07-12] MEDS ORDERED: FERROUS GLUCONATE 324 MG TAB PO SCH (10:00)
[2022-07-12] MEDS ORDERED: CALCIUM CARB/VIT D3/MINERALS 600 MG/800 UNITS TAB PO SCH (10:00)
[2022-07-12] MEDS: FAMOTIDINE 20 MG/2 ML INJ IV SCH (12:10)
--- NOTE | 2022-07-12 13:51 | Discharge Summary ---
Providers - Providers Date of Admission: 07/11/22 14:09 Date of discharge: 07/12/22 Attending physician: JENNY LISA MD 07/11/22 14:57 Consult to Physician [CONS] Routine Comment: Consulting Provider: MIGUELINA CARBAJAL Physician Instructions: Reason For Exam: TIA Primary care physician: JULIANA JI Hospitalization Reason for admission: TIAruled out, recrudescence Condition: Stable Pertinent studies: Reviewed. Procedures: None. Hospital course: The patient is an 87-year-old male with a past medical history of a CVA affecting left eye vision many years ago and CVA 1 month ago treated at [facility] presents to the hospital with complaints of strokelike symptoms. Daughter states patient ambulated normally to the bathroom. She was assisting patient and around 10 AM he began to have difficulty standing and became less responsive. She reports garbled speech and left-sided weakness. Patient had a CVA 1 month ago which he presented with abnormal speech and was noted to have some left-sided weakness. Since then patient has deteriorated from using a cane to a walker and he has undergone several rounds of physical and occupational therapy since discharge from the hospital. Patient was placed on Lipitor and Plavix and has been compliant. He currently is with his daughter since recent stroke. Patient denies any pain. On presentation to the ED, the patient was found to be hemodynamically stable. Patient underwent CT head noncontrast revealing "remote right posterior cerebral artery infarction involving the medial aspect of the right occipital lobe; multifocal bilateral thalamic and basal ganglia small deep infarctions that are likely remote". On further evaluation the patient's symptoms have since returned back to his baseline. Teleneurology was consulted, and they did not recommend the administration of tPA. The patient's symptoms might have been secondary to recrudescence as opposed to TIA versus acute ischemic CVA. Patient is medically clear for discharge. Disposition: 01 HOME / SELF CARE / HOMELESS Final Discharge Diagnosis (Prints w/discharge instructions): TIAruled out, recrudescence, hyperlipidemia, chronic anemia, old cerebrovascular accident, hypocalcemia Time spent for discharge: 45 min Core Measure Documentation - Palliative Care Palliative Care/ Comfort Measures: Not Applicable - Core Measures Any of the following diagnoses?: history only Exam - Constitutional Vitals: Temp Pulse Resp BP Pulse Ox 99.0 F 78 22 130/57 97 07/12/22 04:30 07/12/22 04:30 07/12/22 04:30 07/12/22 04:30 07/12/22 04:30 General appearance: Present: no acute distress, well-nourished - EENT Eyes: Present: PERRL, EOM intact ENT: hearing intact, clear oral mucosa, dentition normal - Neck Neck: Present: supple, normal ROM - Respiratory Respiratory effort: normal Respiratory: bilateral: CTA - Cardiovascular Rhythm: regular Heart Sounds: Present: S1 & S2 - Extremities Extremities: no ischemia, pulses intact, pulses symmetrical, No edema, normal temperature, normal color Peripheral Pulses: within normal limits - Abdominal General gastrointestinal: Present: soft, non-tender, non-distended, normal bowel sounds Male genitourinary: Present: deferred - Rectal Rectal Exam: deferred - Integumentary Integumentary: Present: clear, warm, dry - Musculoskeletal Musculoskeletal: strength equal bilaterally - Psychiatric Psychiatric: appropriate mood/affect, memory intact, cooperative - Neurologic Neurologic: CNII-XII intact, moves all extremities - Allied Health Allied health notes reviewed: nursing Plan Activity: advance as tolerated Diet: low salt Additional Instructions: The patient is an 87-year-old male with a past medical history of a CVA affecting left eye vision many years ago and CVA 1 month ago treated at [facility] presents to the hospital with complaints of strokelike symptoms. Daughter states patient ambulated normally to the bathroom. She was assisting patient and around 10 AM he began to have difficulty standing and became less responsive. She reports garbled speech and left-sided weakness. Patient had a CVA 1 month ago which he presented with abnormal speech and was noted to have some left-sided weakness. Since then patient has deteriorated from using a cane to a walker and he has undergone several rounds of physical and occupational therapy since discharge from the hospital. Patient was placed on Lipitor and Plavix and has been compliant. He currently is with his daughter since recent stroke. Patient denies any pain. On presentation to the ED, the patient was found to be hemodynamically stable. Patient underwent CT head noncontrast revealing "remote right posterior cerebral artery infarction involving the medial aspect of the right occipital lobe; multifocal bilateral thalamic and basal ganglia small deep infarctions that are likely remote". On further evaluation the patient's symptoms have since returned back to his baseline. Teleneurology was consulted, and they did not recommend the administration of tPA. The patient's symptoms might have been secondary to recrudescence as opp osed to TIA versus acute ischemic CVA. Patient is medically clear for discharge. Care Plan Goals: Patient is medically clear for discharge. Assessment: The patient is an 87-year-old male with a past medical history of a CVA affecting left eye vision many years ago and CVA 1 month ago treated at [facility] presents to the hospital with complaints of strokelike symptoms. Daughter states patient ambulated normally to the bathroom. She was assisting patient and around 10 AM he began to have difficulty standing and became less responsive. She reports garbled speech and left-sided weakness. Patient had a CVA 1 month ago which he presented with abnormal speech and was noted to have some left-sided weakness. Since then patient has deteriorated from using a cane to a walker and he has undergone several rounds of physical and occupational therapy since discharge from the hospital. Patient was placed on Lipitor and Plavix and has been compliant. He currently is with his daughter since recent stroke. Patient denies any pain. On presentation to the ED, the patient was found to be hemodynamically stable. Patient underwent CT head noncontrast revealing "remote right posterior cerebral artery infarction involving the medial aspect of the right occipital lobe; multifocal bilateral thalamic and basal ganglia small deep infarctions that are likely remote". On further evaluation the patient's symptoms have since returned back to his baseline. Teleneurology was consulted, and they did not recommend the administration of tPA. The patient's symptoms might have been secondary to recrudescence as opposed to TIA versus acute ischemic CVA. Patient is medically clear for discharge. Follow up with: JULIANA JI MD [Primary Care Provider] - 7 Days
[2022-07-12] MEDS ORDERED: LATANOPROST 0.005% OPHTH SOLN 2.5 ML OU SCH (22:00)
[2022-07-12] MEDS ORDERED: NON-FORMULARY EACH (Atorvastatin [Lipitor] 80 MG Tablet) PO SCH (22:00)
== END 2022-07-12 17:29 | disposition home or self-care (01) ==
LOC: ED 10:56 → INTOOBSV 14:09 → 4A 14:09
PROVIDERS: ADMIT Internal Medicine; ATTEND Student in an Organized Health Care Education/Training Program
DX: G45.9 Transient cerebral ischemic attack, unspecified (principal); E78.5 Hyperlipidemia, unspecified; D64.9 Anemia, unspecified; I63.9 Cerebral infarction, unspecified; E83.51 Hypocalcemia; R29.703 NIHSS score 3; Z86.73 Personal history of transient ischemic attack (TIA), and cerebral infarction without residual deficits; Z79.899 Other long term (current) drug therapy; Z98.890 Other specified postprocedural states
CPT/HCPCS: 36415; 70450; 70496; 70498; 80048; 80053; 82607; 82747; 83550; 85025; 85610; 85670; 85730; 93005; 96361; 96374; 96376; 99291; G0378; J3490; J7030; Q9967